=== PATIENT | female | born 1940 | race Caucasian/White ===

== ENCOUNTER 2019-01-22 13:08 | Outpatient (CLI) | payer MEDICARE ==
--- NOTE | 2019-01-22 13:36 | BD ---
EXAM: DEXA bone density examination HISTORY: 78-year-old postmenopausal female for screening COMPARISON: None FINDINGS: L1--bone mineral density 0.879 g/sq cm; T score -1.0 L2--bone mineral density 0.933 g/sq cm; T score -0.9 L3--bone mineral density 1.019 g/sq cm; T score -0.6 L4--bone mineral density 1.130 g/sq cm; T score 0.6 Total L1-L4--bone mineral density 0.999 g/sq cm; T score -0.4 Left femoral neck--bone mineral density0.607; T score -2.2 Total proximal left femur--bone mineral density 0.723; T score -1.8 IMPRESSION: Osteopenia This patient has a 10 year WHO fracture risk of a major osteoporotic fracture of 39% and of a hip fracture of 25%.
== END 2019-01-22 13:09 | disposition home or self-care (01) ==
LOC: BICMAMMO 13:08
PROVIDERS: ATTEND Internal Medicine Rheumatology
DX: M81.0 Age-related osteoporosis without current pathological fracture (principal); M85.89 Other specified disorders of bone density and structure, multiple sites
CPT/HCPCS: 77080

== ENCOUNTER 2020-06-04 11:36 | Outpatient (CLI) | payer MEDICARE ==
--- NOTE | 2020-06-04 12:14 | RAD ---
Exam:2 views left hip HISTORY: Pain. Radiculopathy. Evaluate for osteoarthritis. COMPARISON: None FINDINGS: There is a sacrum and bony pelvis are intact Contour the left femoral head is maintained. Hip joint space is preserved. Mild degenerative changes of the symphysis pubis. No fractures or dislocation with regards the left hip. Vacuum disc phenomenon at what is presumed to be the L4-L5 level. IMPRESSION: No radiographic evidence of significant degenerative change in the left hip.
== END 2020-06-04 11:37 | disposition home or self-care (01) ==
LOC: SCSRAD 11:36
PROVIDERS: ATTEND Family Medicine
DX: M51.17 Intervertebral disc disorders with radiculopathy, lumbosacral region (principal); M16.12 Unilateral primary osteoarthritis, left hip

== ENCOUNTER 2021-01-26 09:15 | Outpatient (CLI) | payer MEDICARE | END 2021-01-26 09:16 | disposition home or self-care (01) | LOC: BICMAMMO 09:15 | PROVIDERS: ATTEND Internal Medicine Rheumatology | DX: M81.0 Age-related osteoporosis without current pathological fracture (principal); M85.851 Other specified disorders of bone density and structure, right thigh; M85.852 Other specified disorders of bone density and structure, left thigh | CPT/HCPCS: 77080 ==

== ENCOUNTER 2021-12-25 08:08 | Outpatient (CLI) | payer MEDICARE | END 2021-12-25 08:09 | disposition home or self-care (01) | LOC: BICMAMMO 08:08 | PROVIDERS: ATTEND Internal Medicine | DX: Z12.31 Encounter for screening mammogram for malignant neoplasm of breast (principal) | CPT/HCPCS: 77063; 77067 ==